=== PATIENT | male | born 1970 | race Caucasian/White ===

== ENCOUNTER 2017-01-27 10:19 | Day surgery (SDC) | payer OTHER ==
[2017-01-27] MEDS ORDERED: PEPCID ONE (10:31)
[2017-01-27] MEDS ORDERED: REGLAN ONE (10:31)
[2017-01-27] MEDS ORDERED: LR 1,000 ML ONE ×2 (10:31→16:58)
[2017-01-27] MEDS ORDERED: KEFZOL 1 GM/D5W 50 ML ONE (10:51)
--- NOTE | 2017-01-27 12:36 | Diag Imaging Result Document ---
PROCEDURE NAME: LYMPHOSCINTIGRAPHY W/IMG - 01/27/2017 6 LYMPHOSCINTIGRAPHY IMAGES SUBMITTED: FINDINGS: There are two adjacent focal areas of increased activity which I believe overlie the upper outer right chest or axilla. The two focal areas are adjacent to one another. No other abnormality.
[2017-01-27] MEDS ORDERED: MARCAINE 0.25% PF/EPI 1:200,000 ONE (15:03)
[2017-01-27] MEDS ORDERED: METHYLENE BLUE 1% ONE (15:03)
[2017-01-27] MEDS ORDERED: VERSED ONE (16:52)
[2017-01-27] MEDS ORDERED: FENTANYL ONE (16:52)
[2017-01-27] MEDS ORDERED: DIPRIVAN 1% ONE (16:53)
[2017-01-27] MEDS ORDERED: ZOFRAN ONE (16:58)
[2017-01-27] MEDS ORDERED: XYLOCAINE-MPF 2% ONE (16:58)
[2017-01-27] MEDS ORDERED: TORADOL ONE (16:58)
[2017-01-27] MEDS ORDERED: NORCO-10 ONE (17:33)
[2017-01-27 18:03] VITALS: BP 154/75
--- NOTE | 2017-01-27 19:51 | OPERATIVE NOTE ---
PROCEDURE DATE: 01/27/2017 PREOPERATIVE DIAGNOSIS: Intermediate depth melanoma right arm. POSTOPERATIVE DIAGNOSIS: Intermediate depth melanoma right arm. PRINCIPAL PROCEDURE: Right axillary sentinel lymph node biopsy. SURGEON: Alyx Loya MD NAVIGATION OFFICER: Catina Soriano RN. ANESTHESIA: General in addition to local anesthetic. ESTIMATED BLOOD LOSS: 25 mL. DRAINS: None. INDICATIONS: Mr. Lm Hoang is a 46-year-old white male, patient Dr. Lester Razo who was discovered to have a melanoma involving his right arm. He initially underwent a excisional biopsy which showed that this was an intermediate in depth melanoma and wide local excision was later performed again by Dr. Razo. He has a well-healed transverse incision in the top of his right arm. He saw Dr. Puga and Dr. Puga sent him to me for sentinel lymph node biopsy because of the depth of his melanoma. FINDINGS: We found 2 sentinel lymph nodes with high 10 second counts. The specimen that was labeled sentinel lymph node #1 had a 10 second count of greater than 4700 when removed from the axilla. We had a sentinel lymph node #2 that had a 10 second count of over 1600 when removed from the axilla. We also sent 2 nonsentinel lymph nodes. When the sentinel lymph nodes were removed from the axilla the in vivo counts decreased dramatically. Any further palpation of the axilla did not. We felt there was no other abnormal lymph nodes by palpation. PROCEDURE: Prior to surgery the patient was injected by nuclear medicine to identify the sentinel lymph node. Films were taken and the sentinel lymph node was in the right axilla and the area of the sentinel lymph node was marked. He was brought to the operating room, placed supine, received general anesthesia and was ventilated. His right axilla was prepped and draped in a sterile field. He received Ancef prophylactically. I used the Navigator to marga my incision below the hairline. This was a curvilinear incision right axilla. Local anesthetic was placed. I used a 15-blade scalpel to make the incision and the incision was carried down through the skin and subcutaneous tissue down to the deep fat of the deep axilla. Using the Navigator, we identified the sentinel nodes, I removed 2 non-sentinel nodes using the cautery and a medium clip employment trainer and then I removed sentinel lymph node #1 as described above and then sentinel lymph node #2 as described above. Again, this dissection was made using mostly cautery and then medium clips to try to control the afferent and efferent vessels going into and out of these lymph nodes. They were sent down for frozen section and the report from Dr. Genaro Serrano, our pathologist suggested no cancer in these lymph nodes. We did not do a completion axillary lymph node dissection. We closed our incision in 1 layer with 4-0 Monocryl subcuticular stitch. Steri-Strips were applied followed by a dressing. Plans are for him to go the recovery room, be discharged home later today and he will follow up in my outpatient offices in approximately 9 days. I spoke with his family after the procedure.
== END 2017-01-27 18:10 | disposition home or self-care (01) ==
LOC: OPS 10:19
PROVIDERS: ATTEND Surgery
DX: C43.61 Malignant melanoma of right upper limb, including shoulder (principal); I10 Essential (primary) hypertension; E78.00 Pure hypercholesterolemia, unspecified; Z87.891 Personal history of nicotine dependence
CPT/HCPCS: 78195; A9520; J0690; J1885; J2250; J2405; J3010; J7120; Q9968